=== PATIENT | female | born 1970 | race African-American/Black ===

== ENCOUNTER → 2017-03-05 | Outpatient (CLI) | payer MEDICARE, OTHER ==
--- NOTE | 2017-03-05 15:09 | MR ---
EXAMINATION TYPE: MR brain/orbits wo con DATE OF EXAM: 03/05/2017 2:32 PM COMPARISON: 02/17/2012 HISTORY: MS, Malignant neoplasm Multiplanar and multispin-echo imaging of the brain was performed . High-resolution imaging of the o rbits was also performed. The ventricles, basal cisterns and sulci overlying the cerebral convexities are stable relative to th e prior study. There is thinning of the corpus callosum. There is no evidence for midline shift or mass effect. Blooming artifact is noted in the region of the left thalamus as well as the left taylor radiata whic h may reflect chronic the AVM versus prior hemorrhage. There is persistent increased signal within the left temporal lobe as well as a more globular foci ad jacent to the left lateral ventricle and somewhat of a Coleman finger morphology. The overall number o f lesions is stable. Correlate for multiple sclerosis. No new lesions are identified. No acute edema is identified. The paranasal sinuses and mastoid air cells are well-aerated. Evaluation of the orbits demonstrates right-sided intraorbital mass which has increased in size and c urrently measures 11 x 10 mm versus 9 x 7 mm previously. No additional intra or extraconal masses are seen. Optic nerves appear symmetric. Extraocular musculature is within normal limits. IMPRESSION: 1. No white matter lesions as discussed above suspicious for multiple sclerosis. Overall no significa nt change is seen. 2. 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 3. Areas of probable hemosiderin deposition as discussed above.
== END | disposition home or self-care (01) ==
LOC: RADMRIMAIN 13:09
PROVIDERS: ATTEND Family Medicine
DX: G83.89 Other specified paralytic syndromes (principal); G31.84 Mild cognitive impairment of uncertain or unknown etiology; C69.92 Malignant neoplasm of unspecified site of left eye; G35 Multiple sclerosis
CPT/HCPCS: 70540; 70551

== ENCOUNTER → 2017-05-05 | Outpatient (CLI) | payer MEDICARE, OTHER ==
[2017-05-05 12:40] LABS: Basophils % (A) 1 %; CH 25.7; Eosinophils # (A) 0.1 k/uL (0-0.7); Eosinophils % (A) 1 %; HCT 35.7 % (34.0-46.0); HDW 2.35; HGB 11.1 gm/dL (11.4-16.0); Hypochromasia Slight; Luc % (Auto) 3; Lymphocytes # (A) 1.4 k/uL (1.0-4.8); Lymphocytes % (A) 33 %; MCH 25.8 pg (25.0-35.0); MCV 83.2 fL (80.0-100.0); Mean Platelet Volume 8.2; Monocytes # (A) 0.2 k/uL (0-1.0); Monocytes % (A) 6 %; Neutrophils # (A) 2.4 k/uL (1.3-7.7); Neutrophils % (A) 57 %; WBC 4.2 k/uL (3.8-10.6); WBC (Perox) 4.35
[2017-05-05 13:03] LABS: ALT 28 U/L (9-52); AST 21 U/L (14-36); Alkaline Phosphatase 72 U/L (38-126); Anion Gap 12 mmol/L; Blood Urea Nitrogen 12 mg/dL (7-17); Calcium 9.6 mg/dL (8.4-10.2); Carbon Dioxide 20 mmol/L (22-30); Chloride 108 mmol/L (98-107); Glucose 107 mg/dL (74-99); Non-African American GFR(MDRD) >60 (>60 ml/min/1.73 sqM); Potassium 4.2 mmol/L (3.5-5.1); Sodium 140 mmol/L (137-145); Total Bilirubin 0.4 mg/dL (0.2-1.3); Total Protein 7.3 g/dL (6.3-8.2)
[2017-05-05 13:45] LABS: Vitamin B12 450 pg/mL (239-931)
== END | disposition home or self-care (01) ==
LOC: LABWHC1 11:33
PROVIDERS: ATTEND Nurse Practitioner Acute Care
DX: R41.3 Other amnesia (principal); E55.9 Vitamin D deficiency, unspecified
CPT/HCPCS: 36415; 80053; 82306; 82607; 84439; 84443; 84481; 85025

== ENCOUNTER → 2017-05-24 | Outpatient (CLI) | payer MEDICARE, OTHER ==
[2017-05-25 19:15] LABS: Appearance,CSF Clear
== END | disposition home or self-care (01) ==
LOC: LABWHC1 13:11
PROVIDERS: ATTEND Nurse Practitioner Acute Care
DX: G35 Multiple sclerosis (principal)
CPT/HCPCS: 36415; 82040; 82042; 82784; 83873; 83916; 84157; 87476; 89050

== ENCOUNTER 2017-05-28 10:21 | Emergency (ER) | payer OTHER, MEDICARE ==
--- NOTE | 2017-05-28 11:12 | ED ---
General Adult HPI - General Chief complaint: Headache Stated complaint: Positional headache post lumbar puncture Time Seen by Provider: 05/28/17 10:48 Source: patient, family, RN notes reviewed Mode of arrival: ambulatory Limitations: no limitations - History of Present Illness Initial comments: Chief complaint and history of present illness a 46-year-old female here with family. The patient had an LP done 3 days ago continues to have headaches when she stands up. She had nausea vomiting today. Headache goes away when she lays down. The LP was done to confirm the diagnosis of MS. Patient has no other complaints. - Related Data Previous Rx's Medication Instructions Recorded Butalb/APAP/Caff 50-325-40Mg 1 tab PO Q6H PRN #16 tablet 05/28/17 [Fioricet 50-325-40] Ondansetron Odt [Zofran Odt] 4 mg PO Q8HR PRN #10 tab 05/28/17 Allergies Allergy/AdvReac Type Severity Reaction Status Date / Time No Known Allergies Allergy Verified 05/28/17 11:24 Review of Systems ROS Statement: Those systems with pertinent positive or pertinent negative responses have been documented in the HPI. Review of systems. Patient has headache with sitting up no headache when lying down. Nausea vomiting today. 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 She has a growth behind the eye and this is being investigated by [facility]. The patient was diagnosed with MS at [facility] 14 years ago. Family reports that she's being reinvestigated as she has not had the typical symptoms of MS. All systems are reviewed. Past medical problems as noted above. Surgeries include uterine biopsy of the right eye results of which are pending. Family reports that she had had a brain mass biopsied in 2002 at [facility]. Family thinks this was where the diagnosis of MS started. Family history mother had colon cancer brother had Chiari malformation. The patient's ALLERGIES none. Nonsmoker nondrinker ROS Other: All systems not noted in ROS Statement are negative. Past Medical History Additional Past Medical History / Comment(s): ms, blind in right eye - lens removed History of Any Multi-Drug Resistant Organisms: None Reported Additional Past Surgical History / Comment(s): eye surgery, lower abdominal surgery not sure why cataract surg Past Psychological History: No Psychological Hx Reported Smoking Status: Never smoker Past Alcohol Use History: Rare Past Drug Use History: None Reported General Exam - General Exam Comments Initial Comments: Medical examination Patient's vital signs show his temperature 97.3 pulse 62 respiratory rate 18 pulse ox on percent room air blood pressure 151/78. The patient is here because of a headache that developed after having had an LP to diagnose MS. The headache persists after 2 days. Nausea vomiting this morning. Patient reports the headache is there when she stands or sits up and goes away when she lays down. She was advised by her neurologist, Dr. Kelly come the emergency room to have a blood patch done. Patient's denying any other problems. No complaint of or evidence of any neuro deficits or difficulty walking. The patient has been referred here by her neurologist to have a blood patch done by anesthesia. I spoke with Dr. Blackmon and he'll see the patient in the emergency room to evaluate and performed a blood patch as necessary. Dr. Osuna Neurological examination no focal or lateralizing findings. Neuro intact. Radial is 2 through 12 intact. Patient is blind in her right eye. She has been followed by [facility] because of a tumor has been there for multiple years. Limitations: no limitations Course Vital Signs 05/28/17 10:36 Temperature 97.3 F L Pulse Rate 62 Respiratory 18 Rate Blood Pressure 151/78 O2 Sat by Pulse 100 Oximetry Medical Decision Making - Medical Decision Making While waiting for anesthesia to take her upstairs for a blood patch the patient' s headache subsided. Further questioning found the patient's headache is also associated with photophobia and loud noises. She's never had migraine type problems in the past she will be treated as though she has migraines with Fioricet and Zofran. Currently headache free. Disposition Clinical Impression: Headache Disposition: HOME SELF-CARE Condition: Stable Instructions: Acute Headache (ED) Additional Instructions: Laying flat, increase fluid intake including caffeine. Take Fioricet for headache and Zofran for nausea. Follow-up with your family physician and/or return emergency room as needed Prescriptions: Butalb/APAP/Caff 50-325-40Mg [Fioricet 50-325-40] 1 tab PO Q6H PRN #16 tablet PRN Reason: Headache Ondansetron Odt [Zofran Odt] 4 mg PO Q8HR PRN #10 tab PRN Reason: Nausea vomiting Referrals: Mary Stephenson DO [Primary Care Provider] - 1-2 days Time of Disposition: 12:39
[2017-05-28 12:52] VITALS: BP 142/81; PULSE 77; RESP 16; TEMP 98
== END 2017-05-28 12:51 | disposition home or self-care (01) ==
LOC: EC 10:21
DX: G97.1 Other reaction to spinal and lumbar puncture (principal); R11.2 Nausea with vomiting, unspecified; G35 Multiple sclerosis; H54.41 Blindness, right eye, normal vision left eye; H53.149 Visual discomfort, unspecified; Z98.890 Other specified postprocedural states
CPT/HCPCS: 99283

== ENCOUNTER → 2017-07-13 | Outpatient (CLI) | payer OTHER, MEDICARE | END | disposition home or self-care (01) | LOC: LABWHC1 11:09 | PROVIDERS: ATTEND Psychiatry & Neurology Neurology | DX: R41.3 Other amnesia (principal) | CPT/HCPCS: 36415; 81401 ==

== ENCOUNTER → 2017-10-29 | Outpatient (CLI) | payer OTHER, MEDICARE ==
--- NOTE | 2017-10-31 00:07 | MR ---
EXAMINATION TYPE: MR brain wo/w con DATE OF EXAM: 10/29/2017 COMPARISON: Most recent MRI brain March 05, 2017. HISTORY: MS, white matter changes. TECHNIQUE: Multiplanar, multisequence images of the brain and brainstem is performed without and with IV contras t, utilizing 7 mL intravenous Gadavist gadolinium contrast is administered intravenously. Demyelinat ing disease protocol with additional Sagittal Flair sequence performed. FINDINGS: T2 Lesions Present : Yes Approximate Number of Lesions: Difficult to accurately quantify due to confluent appearance Locations Identified : Persistent left temporal and predominantly left sided periventricular involvem ent. Size of Reference Lesion(s): 1. Stable elongated medial left temporal lesion near axial image 11 and sagittal image 11 2 increasing left frontal and parietal deep and periventricular lesions for reference new lesions lef t parietal level axial image 18 correspond to subcortical lesions on sagittal image 10. Enhancing Lesion(s) Present: No T1 Hypointense Lesion(s) Present: Yes Change from Prior: Increase in number Diffusion weighted images demonstrate no evidence of a recent infarct or other diffusion abnormality. There is no worrisome extra-axial fluid collection. The ventricular system and cisternal spaces ar e normal in size and appearance. The brain volume is age appropriate. Midline structures demonstrate normal morphology. The craniocervical junction appears within normal limits. Post contrast images demonstrate no abnormal enhancement. The dural venous sinuses appear pa tent. 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 Left globe is intact. Visualized paranasal sinus es are clear. IMPRESSION: Mild to moderate nonspecific white matter changes redemonstrated with progression in numb er of lesions from prior study noted. No enhancing lesions however are evident.
== END | disposition home or self-care (01) ==
LOC: RADMRIMAIN 12:09
PROVIDERS: ATTEND Psychiatry & Neurology Neurology
DX: G93.9 Disorder of brain, unspecified (principal)
CPT/HCPCS: 70553; A9581

== ENCOUNTER → 2018-03-08 | Outpatient (CLI) | payer MEDICARE, OTHER ==
--- NOTE | 2018-03-09 14:32 | MM ---
Reason for exam: screening (asymptomatic). Last mammogram was performed 6 years and 1 month ago. Physical Findings: A clinical breast exam by your physician is recommended on an annual basis and results should be correlated with mammographic findings. MG 3D Screening Mammo W/Cad Bilateral CC and MLO view(s) were taken. Prior study comparison: January 29, 2012, [facility] DIGITAL LEFT BREAST MAMMOGRAM w/CAD. January 27, 2012, bilateral digital screening mammo w/CAD. The breast tissue is heterogeneously dense. This may lower the sensitivity of mammography. No suspicious abnormality in the right breast. New focal asymmetry middle depth 8-9cm from nipple in the central outer left breast. ASSESSMENT: Incomplete: need additional imaging evaluation, BI-RAD 0 RECOMMENDATION: Special view mammogram of the left breast. If lesion persists on supplemental views, image directed ultrasound is recommended. [facility] will attempt to contact patient to return for supplemental views and ultrasound if indicated.
== END | disposition home or self-care (01) ==
LOC: RADMAMWWP 12:54
PROVIDERS: ATTEND Family Medicine
DX: Z12.31 Encounter for screening mammogram for malignant neoplasm of breast (principal)
CPT/HCPCS: 77063; 77067

== ENCOUNTER → 2018-03-15 | Outpatient (CLI) | payer MEDICARE, OTHER ==
--- NOTE | 2018-03-15 10:47 | MM ---
Reason for exam: additional evaluation requested from abnormal screening. Last mammogram was performed less than 1 month ago. Physical Findings: Nurse did not find any significant physical abnormalities on exam. MG 3D Work Up W/Cad LT Spot compression CC, spot compression ML, and ML view(s) were taken of the left breast. Prior study comparison: March 08, 2018, bilateral MG 3d screening mammo w/cad. January 29, 2012, [facility] DIGITAL LEFT BREAST MAMMOGRAM w/CAD. The breast tissue is heterogeneously dense. This may lower the sensitivity of mammography. No significant new findings when compared with previous films. These results were verbally communicated with the patient and result sheet given to the patient on 03/15/18. ASSESSMENT: Probably benign, BI-RAD 3 RECOMMENDATION: Follow-up diagnostic mammogram of the left breast in 6 months.
== END | disposition home or self-care (01) ==
LOC: RADMAMWWP 09:53
PROVIDERS: ATTEND Family Medicine
DX: R92.8 Other abnormal and inconclusive findings on diagnostic imaging of breast (principal)
CPT/HCPCS: 77065; G0279; 77061

== ENCOUNTER → 2018-04-01 | Outpatient (CLI) | payer OTHER, MEDICARE ==
--- NOTE | 2018-04-02 10:38 | MR ---
EXAMINATION TYPE: MR brain wo/w con DATE OF EXAM: 04/01/2018 COMPARISON: NONE HISTORY: MS, compare to prior MR 10-29-17 TECHNIQUE: Multiplanar, multisequence images of the brain and brainstem is performed without and with IV contras t, utilizing 7.5 mL intravenous Gadavist . FINDINGS: Diffusion weighted images demonstrate no evidence of a recent infarct or other diffusion ab normality. There is no extra-axial fluid collection or significant interval change in white matter s ignal abnormality. The ventricular system and cisternal spaces are stable in size and appearance, as ymmetry in the appearance of the lateral ventricles is unchanged. The brain volume is age appropriat e. Midline structures demonstrate normal morphology. The craniocervical junction appears within normal limits. Post contrast images demonstrate no abnormal enhancement. The dural venous sinuses appear pa tent. The visualized sinuses are clear and the globes are stable. IMPRESSION: Stable white matter signal changes, no abnormal enhancement.
== END | disposition home or self-care (01) ==
LOC: RADMRIMAIN 15:53
PROVIDERS: ATTEND Nurse Practitioner Acute Care
DX: R90.82 White matter disease, unspecified (principal); G35 Multiple sclerosis
CPT/HCPCS: 70553; A9581

== ENCOUNTER → 2025-01-20 | Outpatient (CLI) | payer OTHER, MEDICARE ==
[2025-01-20 13:16] LABS: ALT 15 U/L (8-44); AST 25 U/L (13-35); Albumin 4.2 g/dL (3.8-4.9); Albumin/Globulin Ratio 1.35 Ratio (1.60-3.17); Alkaline Phosphatase 124 U/L (41-126); BUN/Creat Ratio 12.11 Ratio (12.00-20.00); Blood Urea Nitrogen 10.9 mg/dL (9.0-27.0); Calcium 10.1 mg/dL (8.7-10.3); Carbon Dioxide 20.6 mmol/L (21.6-31.8); Chloride 106 mmol/L (96-109); Chol/HDL Ratio 2.05 Ratio; Globulin 3.1 g/dL (1.6-3.3); Glucose 80 mg/dL (70-110); LDL Cholesterol,Calculated 76.3 mg/dL (0.0-131.0); Potassium 4.8 mmol/L (3.5-5.5); Sodium 138 mmol/L (135-145); Total Bilirubin 0.5 mg/dL (0.3-1.2); Total Protein 7.3 g/dL (6.2-8.2)
== END | disposition home or self-care (01) ==
LOC: LABWHC1 09:17
PROVIDERS: ATTEND Family Medicine
DX: Z13.1 Encounter for screening for diabetes mellitus (principal); Z13.220 Encounter for screening for lipoid disorders; Z13.29 Encounter for screening for other suspected endocrine disorder; E55.9 Vitamin D deficiency, unspecified; E53.9 Vitamin B deficiency, unspecified; G35 Multiple sclerosis; R41.3 Other amnesia; R90.82 White matter disease, unspecified
CPT/HCPCS: 36415; 80053; 80061; 82306; 82607; 84207; 84443; 85025